=== PATIENT | male | born 1975 | race Two or more races ===

== ENCOUNTER 2022-12-21 13:23 | Emergency (ER) | payer OTHER ==
[~2022-12-21] VITALS: Ht 180.3 cm; Wt 106.1 kg
[2022-12-21] MEDS ORDERED: ZITHROMAX500 MG PO (16:18)
== END 2022-12-21 16:26 | disposition home or self-care (01) ==
LOC: ER 13:23
DX: A49.3 Mycoplasma infection, unspecified site (principal); R53.81 Other malaise; R09.81 Nasal congestion; R05.8 Other specified cough; R50.9 Fever, unspecified; I10 Essential (primary) hypertension

== ENCOUNTER 2025-01-19 06:05 | Day surgery (SDC) | payer OTHER ==
[~2025-01-19 06:05] MED LIST: ZITHROMAX500 MG PO
[2025-01-19] MEDS ORDERED: DIPHENHYDRAMINE HCL 50 MG/ML VIAL 1ML IV ONE (15:00)
[2025-01-19] MEDS ORDERED: ENALAPRILAT DIHYDRATE 1.25 MG/ML VIAL IV ONE ×2 (15:00)
[2025-01-19] MEDS ORDERED: MIDAZOLAM HCL 2 MG/2 ML VIAL IV ONE (15:00)
[2025-01-19] MEDS ORDERED: fentaNYL CITRATE 50 MCG/ML AMPUL IV PUSH ONE (15:00)
== END 2025-01-19 17:30 | disposition home or self-care (01) ==
LOC: AMB-ENDOS 06:05
PROVIDERS: ATTEND Internal Medicine
DX: D12.5 Benign neoplasm of sigmoid colon (principal); K63.5 Polyp of colon; K57.30 Diverticulosis of large intestine without perforation or abscess without bleeding; Z91.013 Allergy to seafood

== ENCOUNTER 2025-01-19 11:28 | Emergency (ER) | payer OTHER ==
[~2025-01-19] VITALS: Ht 172.7 cm; Wt 90.7 kg
[2025-01-19 11:37] VITALS: O2SAT 100
[2025-01-19 12:07] VITALS: BP 130/90
== END 2025-01-19 12:05 | disposition home or self-care (01) ==
LOC: ER 11:28
DX: I10 Essential (primary) hypertension (principal); Z91.013 Allergy to seafood

== ENCOUNTER 2025-01-22 09:39 | Emergency (ER) | payer OTHER ==
[~2025-01-22] VITALS: Ht 180.3 cm; Wt 120.2 kg
[2025-01-22] MEDS ORDERED: CARDURA1 MG (10:06)
[2025-01-22] MEDS ORDERED: RINGERS SOLUTION,LACTATED 1,000 ML IV STA (10:49)
[2025-01-22 11:29] LABS: BASO % 0.4 % (0.1-1.2); EOS # 0.06 (0.04-0.54); EOS % 0.8 % (0.7-7.0); HEMATOCRIT 43.3 % (40.1-51.0); HEMOGLOBIN 14.3 g/dL (13.7-17.5); LYMPH # 2.58 (1.18-3.74); MONO # 0.53 (0.24-0.82); MONO % 6.8 % (4.7-12.5); NEUT % 58.7 % (34.0-71.1); PLATELET COUNT 322 K/uL (163-369); RED BLOOD COUNT 5.29 M/uL (4.63-6.08); RED CELL DISTRIBUTION WIDTH 13.5 % (11.6-14.4)
[2025-01-22 11:51] LABS: INR 1.03; PROTHROMBIN TIME 11.2 SECONDS (9.0-11.5)
[2025-01-22 11:56] LABS: ALBUMIN 3.9 gm/dL (3.4-5.0); BILIRUBIN TOTAL 0.59 mg/dL (0.3-1.2); BILIRUBIN,CONJUGATED 0.13 mg/dL (0.0-0.2); BILIRUBIN,UNCONJUGATED 0.46 mg/dL (0.0-0.6); CREATININE SERUM 0.9 mg/dL (0.70-1.30); GFR 88.96; POTASSIUM 3.82 mEq/L (3.5-5.1); TOTAL PROTEIN 8.4 gm/dL (6.4-8.2)
[2025-01-22 12:04] LABS: PH,URINE 6.5 (5.0-8.0); URINE APPEARANCE Clear; URINE BILIRRUBIN Negative (NEGATIVE); URINE BLOOD Negative; URINE COLOR Yellow; URINE GLUCOSE Negative (NEGATIVE); URINE KETONE Negative (NEGATIVE); URINE LEUKOCYTE Negative; URINE NITRATE Negative; URINE PROTEIN Negative (NEGATIVE); URINE UROBILINOGEN 0.2 E.U./dl
[2025-01-22 12:12] LABS: URINE RBC 7.2 uL (0.0-20.8)
[2025-01-22 12:31] LABS: URINE BACTERIA 3.6 uL (0.0-1933); URINE EPITHELIAL CELLS 0.7 uL (0.0-38.8); URINE WBC 1.1 uL (0.0-23.2)
[2025-01-22] MEDS ORDERED: LEVSIN/SL0.125 MG SL (16:32)
[2025-01-22] MEDS ORDERED: PROBIOTIC1 EAC2 PO (16:32)
[2025-01-22] MEDS ORDERED: PROTONIX40 MG PO (16:32)
[2025-01-22 17:09] LABS: BASO % 0.2 % (0.1-1.2); EOS # 0.09 (0.04-0.54); HEMATOCRIT 42.5 % (40.1-51.0); HEMOGLOBIN 14.2 g/dL (13.7-17.5); LYMPH # 3.35 (1.18-3.74); LYMPH % 36.4 % (19.3-53.1); MEAN CORPUSCULAR HEMOGLOBIN 27.8 pg (25.6-32.2); MONO # 0.61 (0.24-0.82); MONO % 6.6 % (4.7-12.5); NEUT # 5.12 (1.56-6.13); NEUT % 55.7 % (34.0-71.1); PLATELET COUNT 302 K/uL (163-369); RED CELL DISTRIBUTION WIDTH 13.6 % (11.6-14.4)
== END 2025-01-22 17:34 | disposition home or self-care (01) ==
LOC: ER 09:47
PROVIDERS: General Practice
DX: K62.5 Hemorrhage of anus and rectum (principal); I10 Essential (primary) hypertension; Z91.013 Allergy to seafood
CPT/HCPCS: 36415; 74177; Q9965